=== PATIENT | male | born 1965 | race African-American/Black ===

== ENCOUNTER → 2016-10-13 | Outpatient (CLI) | payer OTHER ==
--- NOTE | 2016-10-13 16:08 | RAD ---
Left shoulder, 3 views, 10/13/2016: History: Shoulder pain No fracture or dislocation is identified. There is mild degenerative change at the AC joint. The periarticular soft tissues are unremarkable. IMPRESSION: 1. Mild degenerative change. 2. No acute abnormality is detected.
== END | disposition home or self-care (01) ==
LOC: RAD 15:36
PROVIDERS: ATTEND Internal Medicine
DX: M19.012 Primary osteoarthritis, left shoulder (principal)
CPT/HCPCS: 73030

== ENCOUNTER → 2020-11-02 | Outpatient (CLI) | payer OTHER ==
--- NOTE | 2020-11-02 16:21 | KCIC ---
EXAM: Cervical spine, 3 views. HISTORY: Pain. COMPARISON: None. FINDINGS: 3 views of the cervical spine are obtained. There is no significant listhesis. There is deg enerative endplate remodeling with disc space narrowing and spurring primarily at the mid and lower c ervical levels. There is multilevel facet arthropathy. No fracture is seen. IMPRESSION: Multilevel degenerative change involving the cervical spine, described above. No acute os seous finding. Electronically signed by: Myriam Todd MD (11/02/2020 4:19 PM) [id number]
--- NOTE | 2020-11-02 17:11 | KCIC ---
Exam performed: X-ray bilateral hands, bilateral feet and bilateral knees. HISTORY: Pain, osteophytes DATE OF SERVICE: 11/02/2020. COMPARISON: None available FINDINGS: AP, lateral and oblique views of the bilateral feet are obtained. There is normal alignment. There is no acute fracture or dislocation. Mild soft tissue swelling is seen. No foreign body. AP, lateral and oblique views of bilateral hands is obtained. Normal alignment is preserved. There is no acute fracture or dislocation. Mild soft tissue swelling is seen, no foreign body identified. AP, lateral and oblique views of bilateral knees is obtained. There is normal alignment of both media l and lateral tibiofemoral and patellofemoral joint compartment. There is no acute fracture or disloc ation. No soft tissue swelling or foreign body seen. IMPRESSION: No acute abnormality seen in the x-ray bilateral hands, bilateral feet and bilateral knees. Mild soft tissue swelling is noted. Electronically signed by: Kiki Alvarenga MD (11/02/2020 5:09 PM) [id number]
== END ==
LOC: KCIC 10:18
PROVIDERS: ATTEND Family Medicine
DX: M17.0 Bilateral primary osteoarthritis of knee (principal); M19.072 Primary osteoarthritis, left ankle and foot; M19.071 Primary osteoarthritis, right ankle and foot; M19.042 Primary osteoarthritis, left hand; M19.041 Primary osteoarthritis, right hand; M47.812 Spondylosis without myelopathy or radiculopathy, cervical region
CPT/HCPCS: 72040; 73130-50; 73562-50; 73630-50